=== PATIENT | male | born 1985 | race African-American/Black ===

== ENCOUNTER 2021-03-14 13:26 | Emergency (ER) | payer OTHER ==
[2021-03-14 13:41] VITALS: BP 125/86; PULSE 86; TEMP 97.9; BMI 40.1
[2021-03-14 16:00] LABS: BASO % 0.6 % (0-2.0); EOS % 3.3 % (0-4.5); HEMATOCRIT 44.2 % (35.4-49); HEMOGLOBIN 15.3 GM/dL (11.7-16.9); LYMPH % 29.8 % (8-40); MCH 28.8 pg (25.7-33.7); MCHC 34.5 g/dl (32.0-35.9); MEAN CELL VOLUME 83.3 fl (80-96); MEAN PLT VOLUME 10.3 fl (7.5-11.1); MONO % 5.6 % (3.8-10.2); NEUT % 60.7 % (42.8-82.8); PLATELET COUNT 296 10^3/uL (134-434); RBC 5.31 M/mm3 (4.00-5.60); RDW 13.3 % (11.9-15.9); RETICULOCYTES 1.42 % (0.5-1.5); WHITE BLOOD COUNT 14.2 K/mm3 (4.0-10.0)
[2021-03-14 16:17] LABS: INR 0.97 (0.83-1.09); PROTHROMBIN TIME (PATIENT) 11.9 SEC (9.7-13.0)
[2021-03-14 16:20] LABS: ACTIVATED PTT 28.4 SECONDS (25.2-36.5)
[2021-03-14 16:24] LABS: BLOOD UREA NITROGEN 11.5 mg/dL (7-18); CALCIUM 9.2 mg/dL (8.5-10.1)
[2021-03-14 16:28] LABS: CREATININE 1.2 mg/dL (0.55-1.3)
[2021-03-14 16:29] LABS: BILIRUBIN,TOTAL 0.3 mg/dL (0.2-1); TOT PROT 8.6 g/dl (6.4-8.2)
== END 2021-03-14 20:33 | disposition home or self-care (01) ==
LOC: JER 13:26
DX: K52.9 Noninfective gastroenteritis and colitis, unspecified (principal)
CPT/HCPCS: 36415; 74177-TC; 80053; 82272; 82728; 83010; 83540; 83550; 85025; 85045; 85610; 85730; 86850; 86900; 86901; 99285-25; Q9967